=== PATIENT | female | born 1950 | race American Indian/Alaskan Native ===

== ENCOUNTER 2020-12-23 12:38 | Emergency (ER) | payer MEDICARE ==
--- NOTE | 2020-12-23 13:32 | Emergency Department Report ---
ED CPR HPI - General Chief Complaint: Cardiac Arrest/CPR Stated Complaint: CARDIAC ARREST Time Seen by Provider: 12/23/20 13:17 Source: EMS (Verbal report received from emergency medical services. EMS documentation not available at time of chart dictation ), RN notes reviewed Mode of arrival: Stretcher Limitations: Altered Mental Status, Physical Limitation - History of Present Illness Initial Comments: The patient was evaluated in the emergency department for symptoms described in the history of present illness. He/she was evaluated in the context of the global COVID-19 pandemic, which necessitated consideration that the patient might be at risk for infection with the virus that causes COVID-19. Institutional protocols and algorithms that pertain to the evaluation of patients at risk for COVID-19 are in a state of rapid change based on information released by regulatory bodies including the CDC and federal and state organizations. These policies and algorithms were followed during the patient's care in the emergency department. Please note that these policies, procedures and recommendations changed on a rapid basis. The patient is a 70-year-old female. She is not known to myself previously. She is brought to the hospital by emergency medical services as an qpl-ht-padvombl cardiac arrest. Patient arrives on a backboard, receiving ofq-mvdmw-azjl ventilation, with a GCS of 3. As per EMS, the patient was at dialysis today, received approximately 5 minutes of hemodialysis, reportedly complained of back pain, neck pain, and then became unresponsive. EMS reported to myself that prehospital rhythm is reported to be tachycardia with pulses. EMS reports that dialysis personnel initiated CPR. EMS reports that upon their arrival, the patient lost pulses. EMS placed a right lower extremity IO line, and also provided xfw-xcskt-znxw ventilation in the field. They report that the patient was a difficult intubation. EMS r eports the patient is pulseless in their care for approximately 20 minutes. EMS reports that while the patient is in their care in the field, the patient does not have return of spontaneous circulation. Upon arrival to this emergency room, pupils are midpoint and dilated and do not react to light. Patient has copious emesis on her head, face and oropharynx. She is a GCS of 3, no pulses, and is receiving wqi-fkczt-lodv ventilation. Patient received aggressive CPR here in the emergency room. She received multiple rounds of epinephrine, sodium bicarbonate, and calcium chloride. Briefly, she regains return of spontaneous circulation, although she is bradycardic, with an unobtainable blood pressure. She remains in a GCS of 3. Shortly after regaining pulses, patient lost pulses, and became asystolic. In spite of aggressive resuscitative measures, pulses were not able to be reobtained, and resuscitative measures were subsequently terminated. At this point time, the patient is not accompanied by friends or family for additional information or collateral information. MD Complaint: other (Patient reportedly collapsed during hemodialysis) -: minute(s) Place: other (Hemodialysis) Bystander CPR Performed: Yes Initial Findings in the Field: no pulse, PEA Treatments Prior to Arrival: BMV, chest compressions, spinal immobilization, other (Right lower extremity IO) - Related Data Allergies Allergy/AdvReac Type Severity Reaction Status Date / Time codeine Allergy Rash Verified 04/09/15 12:38 ED Review of Systems ROS: Stated complaint: CARDIAC ARREST Other details as noted in HPI Comment: Unobtainable due to pts medical conditions ED Physical Exam - General Limitations: Altered Mental Status, Physical Limitation, Other General appearance: obtunded - Head Head exam: Present: atraumatic, normocephalic - Eye Eye exam: Present: normal appearance, other (Pupils are midpoint and do not react to light) - ENT ENT exam: Present: mucous membranes moist, other (Copious secretions noted in the oropharynx) - Neck Neck exam: Present: normal inspection - Respiratory Respiratory exam: Present: other (No breath sounds without nid-omfct-lbfx ventilation). Absent: normal lung sounds bilaterally - Cardiovascular Cardiovascular Exam: Present: other (The patient is initially pulseless). Absent: systolic murmur, diastolic murmur, rubs, gallop - GI/Abdominal GI/Abdominal exam: Present: soft - Extremities Exam Extremities exam: Present: normal inspection (Venous stasis changes noted in the right lower and left lower extremity), pedal edema, other (There is an IO noted in the right lower extremity) - Back Exam Back exam: Present: normal inspection - Neurological Exam Neurological exam: Present: altered, other (The patient is nonverbal, with a GCS of 3) - Psychiatric Psychiatric exam: Present: other (The patient is nonverbal) - Skin Skin exam: Present: warm, dry, intact, normal color. Absent: rash - Central Line Placement Left Femoral Consent Obtained: emergent situation Time Out Performed: No Patient Placed on Monitor/Pulse Ox: No MD Prep: mask, gown, gloves Central Line Prep: Povidone-Iodine 1% Ultrasound Used for Placement: Yes Central Line Lumen Inserted: triple Reason for Insertion: Emergency Venous Access Bloods Obtained for Lab: No Additional Comments: After regaining return of spontaneous circulation, patient requires emergent vascular access. Therefore, an emergent crash nonsterile central line is attempted in the left femoral vein. Using ultrasound guidance, the left femoral vein is visualized in real-time. Patient is morbidly obese, and unable to cannulate left femoral vein, secondary to massive and morbid obesity. Shortly thereafter, patient lost pulses, and we terminated central line placement efforts. - Intubation Time Out Performed: No (Emergency situation) Laryngoscope: fiberoptic video scope Size: 4 (As for) Assist Device Used: fiberoptic device ET Tube Size: 7.5 Tube Secured Depth (cm): 23 Tube Secured Location: lips Tube Placement Confirmation: visualized tube passing t, equal breath sounds bilat, confirmation by capnometr Additional Comments: After return of spontaneous circulation, patient remains in a coma with a GCS of 3. She receives fes-lnahx-saef ventilation, and video laryngoscopy is performed with a curved S4 laryngoscopic video blade. Oropharynx is copiously suctioned, and a 7.5 endotracheal tube was easily inserted into the trachea under direct visualization ED Medical Decision Making - Medical Decision Making Differential diagnosis, including not limited to: Hyperkalemia, acute coronary syndrome, electrolyte derangement, pulmonary embolism, aortic dissection Critical Care Time: Yes Critical care time in (mins) excluding proc time.: 35 Critical care attestation.: If time is entered above; I have spent that time in minutes in the direct care of this critically ill patient, excluding procedure time. ED Disposition Clinical Impression: Cardiac arrest, Morbid obesity, End stage renal disease Disposition: 20 Is pt being admited?: No Does the pt Need Aspirin: No Condition: Undetermined
== END 2020-12-23 18:03 ==
LOC: ED 12:38
DX: I46.9 Cardiac arrest, cause unspecified (principal); N18.6 End stage renal disease; Z99.2 Dependence on renal dialysis; E66.01 Morbid (severe) obesity due to excess calories; Z88.5 Allergy status to narcotic agent
CPT/HCPCS: 31500; 92950; 99285